=== PATIENT | female | born 1950 | race Caucasian/White ===

== ENCOUNTER 2017-04-30 13:17 | Emergency (ER) | payer OTHER ==
[2017-04-30 14:01] VITALS: BMI 29.8
[2017-04-30 14:02] VITALS: BP 148/69; PULSE 61; RESP 16; TEMP 98.5; O2SAT 97
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
--- NOTE | 2017-04-30 16:44 | RAD ---
PROCEDURE: Left Knee Radiographs. HISTORY: Pain. COMPARISON: Made with left knee radiographs 04/12/2016 FINDINGS: BONES: No obvious acute displaced fracture nor dislocation. JOINTS: There appears to be mild degenerative changes of the medial compartment with small marginal medial osteophyte formation. . Tiny posterior patellar osteophyte formation also felt to be present. JOINT EFFUSION: Evaluation for joint effusion is limited due to the presence of clothing artifact wrapped around the suprapatellar region ; questionable trace suprapatellar joint effusion OTHER FINDINGS: None. IMPRESSION: Limited study as described. No acute fractures. Suspect minor early DJD medial patellofemoral compartments.
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
== END 2017-04-30 17:45 | disposition home or self-care (01) ==
LOC: H.ER 13:17
DX: S09.90XA Unspecified injury of head, initial encounter (principal); S89.92XA Unspecified injury of left lower leg, initial encounter; M54.5 Low back pain; V03.10XA Pedestrian on foot injured in collision with car, pick-up truck or van in traffic accident, initial encounter; Y92.410 Unspecified street and highway as the place of occurrence of the external cause

== ENCOUNTER 2017-08-16 16:24 | Emergency (ER) | payer OTHER ==
[2017-08-16 16:24] VITALS: BMI 29.8
[2017-08-16 16:48] VITALS: BP 173/76; PULSE 60; RESP 18; TEMP 97.9; O2SAT 99
--- NOTE | 2017-08-16 17:50 | ED PDOC ---
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 No direct trauma or injury to the area. Pain is worsened with movement such as walking. Taking Tylenol, Advil, and Naproxen for pain without relief. Has tried using shoe inserts and icing with no improvement. PMD: Provider TBD Past Medical History Reviewed: Historical Data, Nursing Documentation, Vital Signs Vital Signs: Last Vital Signs Temp 97.9 F 08/16/17 16:46 Pulse 60 08/16/17 16:46 Resp 18 08/16/17 16:46 BP 173/76 H 08/16/17 16:46 Pulse Ox 99 08/16/17 16:46 - Medical History PMH: No Chronic Diseases - Surgical History Surgical History: No Surg Hx - Family History Family History: States: Unknown Family Hx - Social History Current smoker - smoking cessation education provided: No Alcohol: None Drugs: Denies - Home Medications Home Medications: Ambulatory Orders Medication Instructions Recorded Naproxen 375 mg PO Q8 PRN #15 tab 04/12/16 Acetaminophen/Oxycodone Hydr 1 tab PO Q6 PRN #8 tab 12/14/16 [Oxycodone and Acetaminophen 325 mg-2.5 mg] Naproxen [Naprosyn Tab] 375 mg PO Q8 PRN #21 tab 12/14/16 Cyclobenzaprine [Cyclobenzaprine 10 mg PO Q8 PRN #30 tab 04/30/17 HCl] Naproxen [Naprosyn] 500 mg PO BID PRN #15 tab 04/30/17 traMADol [Ultram] 50 mg PO Q6H PRN #15 tab 08/16/17 - Allergies Allergies/Adverse Reactions: Allergies Allergy/AdvReac Type Severity Reaction Status Date / Time No Known Allergies Allergy Verified 04/12/16 20:52 Review of Systems ROS Statement: Except As Marked, All Systems Reviewed And Found Negative Musculoskeletal: Positive for: Foot Pain (Right heel) Physical Exam - Reviewed Nursing Documentation Reviewed: Yes Vital Signs Reviewed: Yes - Physical Exam Appears: Positive for: Well, Non-toxic, No Acute Distress Head Exam: Positive for: ATRAUMATIC, NORMAL INSPECTION, NORMOCEPHALIC Skin: Positive for: Normal Color, Warm, Dry Eye Exam: Positive for: Normal appearance Neck: Positive for: Normal Respiratory: Negative for: Respiratory Distress Pulses-Dorsalis Pedis (L): 2+ Pulses-Dorsalis Pedis (R): 2+ Extremity: Positive for: Normal ROM, Tenderness (to the central calcaneus), Capillary Refill (< 2 sec). Negative for: Deformity Neurologic/Psych: Positive for: Alert, Oriented - ECG O2 Sat by Pulse Oximetry: 99 (RA) Pulse Ox Interpretation: Normal Medical Decision Making Medical Decision Making: Time: 17:46 Initial Plan: --Ultram 50 mg PO --X-Ray Right Foot Time: 18:14 X-Ray Right Foot: FINDINGS: BONES: Normal. No fracture. JOINTS: Normal. SOFT TISSUES: Normal. OTHER FINDINGS: None. IMPRESSION: Normal right foot radiographs. Time: 18:34 Clinical Impression: Heel pain Patient is medically stable for discharge home. Counseling was provided and all questions were answered regarding diagnosis, X-Ray results, and need for follow up with Podiatry. There is agreement to discharge plan. Return if symptoms persist or worsen. Scribe Attestation: Documented by Lizeth Solares, acting as a scribe for Krissy Luevano PA-C Provider Scribe Attestation: All medical record entries made by the Scribe were at my direction and personally dictated by me. I have reviewed the chart and agree that the record accurately reflects my personal performance of the history, physical exam, medical decision making, and the department course for this patient. I have also personally directed, reviewed, and agree with the discharge instructions and disposition. Disposition - Clinical Impression Clinical Impression: Heel pain - Patient ED Disposition Is Patient to be Admitted: No Counseled Patient/Family Regarding: Studies Performed, Diagnosis, Need For Followup, Rx Given - Disposition Disposition: Routine/Home Disposition Time: 18:34 Condition: STABLE Prescriptions: traMADol [Ultram] 50 mg PO Q6H PRN #15 tab PRN Reason: Pain Instructions: Plantar Fasciitis (ED) Forms: [employer] ([place])
--- NOTE | 2017-08-16 18:23 | RAD ---
PROCEDURE: Right Foot Radiographs. HISTORY: 3 weeks heel pain COMPARISON: None. FINDINGS: BONES: Normal. No fracture. JOINTS: Normal. SOFT TISSUES: Normal. OTHER FINDINGS: None. IMPRESSION: Normal right foot radiographs.
== END 2017-08-16 18:48 | disposition home or self-care (01) ==
LOC: H.ER 16:24
DX: M79.671 Pain in right foot (principal)